=== PATIENT | male | born 1950 | race African-American/Black ===

== ENCOUNTER 2016-07-18 06:34 | Day surgery (SDC) | payer MEDICARE ==
[~2016-07-18] VITALS: Ht 177.8 cm; Wt 79.4 kg
[~2016-07-18 06:34] MED LIST: METFORMIN1000 MG PO; MULTI PO; ZESTRIL/PRINIV2.5 MG PO
[2016-07-18 08:53] VITALS: BP 115/75
== END 2016-07-18 08:55 | disposition home or self-care (01) ==
LOC: ENDO 06:34
PROVIDERS: ATTEND Internal Medicine Gastroenterology
PROC: 0DBK8ZX Excision of Ascending Colon, Via Natural or Artificial Opening Endoscopic, Diagnostic (ICD-10-PCS; principal; 2016-07-18)
PROC: 0DBL8ZX Excision of Transverse Colon, Via Natural or Artificial Opening Endoscopic, Diagnostic (ICD-10-PCS; 2016-07-18)
PROC: 0DBN8ZX Excision of Sigmoid Colon, Via Natural or Artificial Opening Endoscopic, Diagnostic (ICD-10-PCS; 2016-07-18)
PROC: 0DBH8ZX Excision of Cecum, Via Natural or Artificial Opening Endoscopic, Diagnostic (ICD-10-PCS; 2016-07-18)
DX: Z12.11 Encounter for screening for malignant neoplasm of colon (principal); K64.4 Residual hemorrhoidal skin tags; K57.30 Diverticulosis of large intestine without perforation or abscess without bleeding; K64.8 Other hemorrhoids; D12.2 Benign neoplasm of ascending colon; D12.0 Benign neoplasm of cecum; D12.3 Benign neoplasm of transverse colon; D12.5 Benign neoplasm of sigmoid colon; E11.9 Type 2 diabetes mellitus without complications; F17.210 Nicotine dependence, cigarettes, uncomplicated; Z79.84 Long term (current) use of oral hypoglycemic drugs

== ENCOUNTER 2020-04-12 08:13 | Emergency (ER) | payer MEDICARE ==
[~2020-04-12] VITALS: Ht 170.2 cm; Wt 79.1 kg
[2020-04-12 08:49] LABS: HEMATOCRIT 42.3 % (39.0-50.0); HEMOGLOBIN 13.1 g/dl (14.0-18.0); IMMATURE GRANULOCYTES 0.3 % (0.0-5.0); MEAN CELL VOLUME 88.9 fL CALC (80.0-100.0); MEAN CORPUSCULAR HGB 27.5 pG CALC (26.0-32.0); NEUT# 3.07 thou/uL (1.82-7.42); RED BLOOD COUNT 4.76 mill/uL (4.70-6.10)
[2020-04-12] MEDS ORDERED: PEPCID20 MG PO (10:02)
[2020-04-12] MEDS ORDERED: MEDDOSEPAK PO (10:02)
[2020-04-12] MEDS ORDERED: BENADRYL 50MG C50 MG PO (10:02)
[2020-04-12 10:41] VITALS: BP 111/67
[2020-04-12 10:53] LABS: ALBUMIN 4.4 g/dL (3.2-5.0); ALKALINE PHOSPHATASE 88 u/l (38-126); ANION GAP 13 (6-22 (CALC)); BILIRUBIN, TOTAL 0.7 mg/dL (0.0-1.4); BUN 13 mg/dL (8-23); BUN/CREATININE RATIO 15 (12-20 (CALC)); CARBON DIOXIDE 24 mmol/l (22-30); CHLORIDE 104 mmol/l (95-108); CREATININE 0.9 mg/dL (0.7-1.3); GFR > 60 ML/MIN (>=60 (CALC)); GFR FOR AFR.AMER. > 60 ML/MIN (>=60 (CALC)); SGOT/AST 55 u/l (19-48); SODIUM 137 mmol/l (137-146); TOTAL PROTEIN 7.7 g/dL (6.3-8.2)
== END 2020-04-12 10:38 | disposition left against medical advice (07) ==
LOC: ED 08:13
PROVIDERS: Emergency Medicine
DX: T78.3XXA Angioneurotic edema, initial encounter (principal); E11.9 Type 2 diabetes mellitus without complications; I10 Essential (primary) hypertension; F17.200 Nicotine dependence, unspecified, uncomplicated; Z79.84 Long term (current) use of oral hypoglycemic drugs; Z91.19 Patient's noncompliance with other medical treatment and regimen
CPT/HCPCS: J0171

== ENCOUNTER 2024-04-29 10:49 | Emergency (ER) | payer OTHER, MEDICARE ==
[~2024-04-29] VITALS: Ht 170.2 cm; Wt 79.0 kg
[2024-04-29] VITALS (7 sets, daily range): BP systolic 125–171; BP diastolic 79–90
[~2024-04-29 10:49] MED LIST changes: +BENADRYL 50MG C50 MG PO; +MEDDOSEPAK PO; +PEPCID20 MG PO
[2024-04-29] MEDS ORDERED: BACITRACIN BASE 15 GM TUBE TOP ONE (12:15)
== END 2024-04-29 12:30 | disposition home or self-care (01) | DRG 605 ==
LOC: ED 10:49
DX: S00.81XA Abrasion of other part of head, initial encounter (principal); E11.9 Type 2 diabetes mellitus without complications; F17.290 Nicotine dependence, other tobacco product, uncomplicated; V47.5XXA Car driver injured in collision with fixed or stationary object in traffic accident, initial encounter